=== PATIENT | female | born 1995 | race African-American/Black ===

== ENCOUNTER 2023-06-07 15:17 | Emergency (ER) | payer OTHER ==
[~2023-06-07] VITALS: Ht 165.1 cm; Wt 68.2 kg
[~2023-06-07 15:17] MED LIST: PRENATAL VITAMINS
[2023-06-07 15:48] VITALS: TEMP 98.7
[2023-06-07 16:11] LABS: COVID AG,FIA SOURCE NASAL SWAB
[2023-06-07 16:19] LABS: SARS-COV2 (COVID) ANTIGEN,FIA Negative (Negative)
[2023-06-07 16:22] LABS: INFLUENZA TYPE A NEGATIVE FOR TYPE A (NEGATIVE); INFLUENZA TYPE B NEGATIVE FOR TYPE B (NEGATIVE)
[2023-06-07] MEDS ORDERED: GUAIFDM PO (16:41)
[2023-06-07] MEDS ORDERED: ALBU18HF12 IH (16:41)
[2023-06-07] MEDS ORDERED: ACET-66 PO (16:41)
[2023-06-07 16:45] VITALS: BP 126/73; PULSE 96; RESP 18
== END 2023-06-07 17:24 | disposition home or self-care (01) ==
LOC: EMS 15:25
DX: J06.9 Acute upper respiratory infection, unspecified (principal); Z20.822 Contact with and (suspected) exposure to COVID-19
CPT/HCPCS: 87804; 99283